=== PATIENT | female | born 1955 | race Caucasian/White ===

== ENCOUNTER 2018-04-15 14:17 | Emergency (ER) | payer OTHER ==
[~2018-04-15] VITALS: Ht 170.2 cm; Wt 105.7 kg
[2018-04-15 15:06] LABS: BASOPHILS ABSOLUTE AUTO 0.04 K/mm3 (0.00-0.23); BASOPHILS PERCENT AUTO 1 % (0-2); EOSINOPHILS PERCENT AUTO 0 % (0-6); Hematocrit 46.8 % (33.0-51.0); Hemoglobin 16.3 g/dL (11.5-16.0); IMMATURE GRAN ABSOLUTE AUTO 0.03 K/mm3 (0.00-0.10); IMMATURE GRAN PERCENT AUTO 0 % (0-1); LYMPHOCYTES ABSOLUTE AUTO 1.71 K/mm3 (0.84-5.20); LYMPHOCYTES PERCENT AUTO 20 % (21-46); MONOCYTES ABSOLUTE AUTO 0.37 K/mm3 (0.16-1.47); MONOCYTES PERCENT AUTO 4 % (4-13); Mean Corpuscular HGB 31.3 pg (26.0-34.0); Mean Corpuscular HGB Conc 34.8 g/dL (31.5-36.5); Mean Corpuscular Volume 90 fL (80-100); Mean Platelet Volume 9.6 fL (9.1-12.4); NEUTROPHILS ABSOLUTE AUTO 6.44 K/mm3 (1.96-9.15); NEUTROPHILS PERCENT AUTO 75 % (41-73); Platelet Count 303 K/mm3 (150-400); RDW Standard Deviation 42.6 fL (35.1-46.3); White Blood Cell Count 8.59 K/mm3 (4.00-11.30)
[2018-04-15 15:19] LABS: Alanine Aminotransfer (ALT/SGP 41 U/L (12-78); Albumin, Blood 4.2 g/dL (3.4-5.0); Albumin/Globulin Ratio 1.1 (0.8-1.8); Alk Phos 115 U/L (50-136); Anion Gap 10 mmol/L (6-16); Aspartate Aminotrans (AST/SGOT 34 U/L (12-37); Bilirubin, Total 0.8 mg/dL (0.1-1.0); Blood Urea Nitrogen 9 mg/dL (8-24); CO2, Blood 28 mmol/L (21-32); Calcium, Blood 8.8 mg/dL (8.5-10.1); Chloride, Blood 101 mmol/L (98-108); Creatinine, Blood 1.13 mg/dL (0.40-1.00); Ethanol (Alcohol), Blood, Med <3 mg/dL; Globulin, Blood 3.9 g/dL (2.2-4.0); Glomerular Filtration Rate 52 (60-); Glucose, Blood 114 mg/dL (70-99); Potassium, Blood 3.4 mmol/L (3.5-5.5); Salicylate <1.7 mg/dL (2.8-20.0); Sodium, Blood 139 mmol/L (136-145); Thyroxine (T4) 1.5 ug/dL (4.8-13.9); Total Protein, Blood 8.1 g/dL (6.4-8.2)
[2018-04-15 15:50] LABS: Acetaminophen, Random <2.0 ug/mL (10.0-30.0)
[2018-04-15 15:58] LABS: Source, Urine Clean Catch
[2018-04-15 16:03] LABS: Appearance, Urine Clear (Clear); Bilirubin, Urine Neg (Neg); Blood, Urine 1+ (Neg); Color, Urine Yellow (P-Yellow); Glucose Qualitative, Urine Neg (Neg); Ketones, Urine 1+ (Neg); Leukocyte Esterase, Urine Neg (Neg); Nitrite, Urine Neg (Neg); Protein, Urine Neg (Neg); Urobilinogen, Urine NORM (Normal); pH, Urine 6.5 (5.0-8.0)
[2018-04-15 16:13] LABS: Red Blood Cells, Urine 0-2 /hpf (0-2); Squamous Epithelial Cells Mod /hpf (Few); White Blood Cells, Urine 0-2 /hpf (0-5)
[2018-04-15 16:14] LABS: Bacteria Few /hpf
[2018-04-15 16:23] LABS: U Amphetamine Screen Not Detected; U Barbituate Screen Not Detected; U Benzodiazapine Screen Not Detected; U Buprenorphine Screen Not Detected; U Cannabinoids Screen Not Detected; U Cocaine Screen Not Detected; U Methadone Screen Not Detected; U Methamphetamine Screen Not Detected; U Opiates Screen Not Detected; U Oxycodone Screen Not Detected; U Phencyclidine Screen Not Detected; U Propoxyphene Screen Not Detected
[2018-04-15] MEDS ORDERED: Celexa10 MG PO (18:28)
[2018-04-15] MEDS ORDERED: Synthroid100 MCG PO (18:28)
== END 2018-04-15 18:55 | disposition home or self-care (01) ==
LOC: ER 14:17
PROVIDERS: Emergency Medicine
DX: F32.9 Major depressive disorder, single episode, unspecified (principal); R45.851 Suicidal ideations; R19.7 Diarrhea, unspecified; R11.2 Nausea with vomiting, unspecified; E03.9 Hypothyroidism, unspecified; F41.9 Anxiety disorder, unspecified; Z91.013 Allergy to seafood; Z91.011 Allergy to milk products; Z88.2 Allergy status to sulfonamides; Z91.018 Allergy to other foods; Z79.899 Other long term (current) drug therapy
CPT/HCPCS: 36415; 80053; 81001; 81025; 84436; 84443; 85025; 99284-25; G0480; Q3014

== ENCOUNTER 2019-02-10 08:10 | Day surgery (SDC) | payer OTHER ==
[~2019-02-10] VITALS: Ht 170.2 cm; Wt 92.7 kg
[~2019-02-10 08:10] MED LIST: Celexa10 MG PO; Synthroid100 MCG PO
--- NOTE | 2019-02-10 09:11 | NUR ---
History, Chart, Medications and Allergies reviewed before start of procedure. Lungs clear T/O to Auscultation. Patient confirms NPO status and agrees with scheduled surgery. Pre-Op teaching done. Pt verbalizes understanding. Patient reports completing Chlorhexadine shower X2 prior to admission to hospital.
--- NOTE | 2019-02-10 13:41 | NUR ---
INTO STEP VIA [facility]. PT REPORTS 4/10 ABDOMINAL PAIN. NO NAUSEA. STERI STRIPS TO INCISIONS X 4 C/D/I. PT OFFERED PO FLUIDS, HOWEVER, RN INSISTED THAT PT WOULD HAVE TO SIT UP IN ORDER TO DRINK-PT REQUESTS SPONGE INSTEAD TO WET MOUTH.REQUEST GRANTED.
--- NOTE | 2019-02-10 14:10 | NUR ---
PT REPORTS NAUSEA AND DIZZINESS. MED WITH REGLAN 10 MG IVP X1 SEE EMAR. PT INCONTINENT OF URINE- RN OFFERED PT BEDPAN OR TO GET OOB TO [facility]-PT STATES "I'M ALREADY GOING!" PT TEARFUL AND CRYING REGARDING THE URINARY INCONTINENCE. RN OFFERED REASSURANCE-[facility] COMPLETED AND COMPLETE BED CHANGE DONE. PT APPEARED TO DRIFT OFF TO SLEEP ONCE LINEN CHANGED.
--- NOTE | 2019-02-10 14:52 | NUR ---
PT REPORTS THAT HER PAIN LEVEL IS NOW 2/10. WHEN ASKED IF THE NAUSEA AND DIZZINESS ARE IMPROVING, PT REMARKS "IT IS HARD TO SAY." PT APPEARS TO SLEEP INTERMITTENTLY WHEN NOT DISTURBED. PT REPORTS HISTORY OF SLEEP APNEA-SEVERAL APNEIC SPELLS NOTED WHEN PT FALLS ASLEEP-SATS IN THE 80'S AT TIMES. PT ENCOURAGED TO C&DB AND SATS RETURN TO >90%
--- NOTE | 2019-02-10 15:08 | NUR ---
DR. MERINO UPDATED THAT PT HAS CONTINUED NAUSEA AND DIZZINESS AND THAT SHE IS REFUSING TO EAT, DRINK, AND/OR MOVE AT THIS TIME. ORDER GIVEN TO ADMIT PT TO SURGICAL OBSERVATION STATUS FOR OVER NIGHT.
--- NOTE | 2019-02-10 15:28 | NUR ---
REPORT GIVEN TO SANTIAGO ARANGO IN PREP TO TRANSFER PT TO ROOM 227.
--- NOTE | 2019-02-10 17:31 | NUR ---
PATIENT HAS BEEN SLEEPING SINCE ARRIVAL TO FLOOR. VSS. LAP SITES CLEAR. O2 @ 1L PER NC TO KEEP SATS >90 %. HAS DENIED NAUSEA OR NEED FOR PAIN MED. CONT TO MONITOR.
--- NOTE | 2019-02-11 05:26 | NUR ---
SHIFT SUMMARY LYING IN SEMI FOWLERS WHILE RESTING WITH EYES CLOSED. DENIES PAIN OR DISCOMFORT AT THIS TIME. C/O DIZZYNESS AND FEELING SHAKY THROUGH OUT SHIFT, HAS REFUSED OFF OF N/V AND/OR PAIN MEDS. TOLERATING FLUIDS, APPLESAUCE, AND CRACKERS WELL. NEURO AND NEUROVASCULAR INTACT. HAS BEEN AMBULATING TO BATHROOM WITH STANDBY ASSIST. NO FURTHER CHANGES SINCE START OF SHIFT. SAFETY MEASURES IN PLACE. WILL CONTINUE TO MONITOR.
--- NOTE | 2019-02-11 09:54 | NUR ---
DISCHARGED DC'D IV, CATHETER INTACT. REVIEWED DC PAPERWORK; PT VERBALIZED UNDERSTANDING. PT LEFT UNIT IN WC W/POSSESSIONS AND DC PAPERWORK IN HAND ACCOMPANIED BY SPOUSE.
== END 2019-02-11 09:45 | disposition home or self-care (01) ==
LOC: ORSCMMR 08:10 → ORD 09:30 → ORSCMMR 09:30 → SURS 15:30 → ORSCMMR 02-11 09:45
PROVIDERS: Surgery
PROC: BF031ZZ Plain Radiography of Gallbladder and Bile Ducts using Low Osmolar Contrast (ICD-10-PCS; principal; 2019-02-10 09:30)
PROC: 0FT44ZZ Resection of Gallbladder, Percutaneous Endoscopic Approach (ICD-10-PCS; principal; 2019-02-10 09:30)
DX: K80.20 Calculus of gallbladder without cholecystitis without obstruction (principal); E03.9 Hypothyroidism, unspecified; Z79.899 Other long term (current) drug therapy
CPT/HCPCS: 74300; 88304; A9270-GY; C1729; J0690; J1100; J1885; J2250; J2270; J2405; J2704; J2765; J3010; J7030; J7120

== ENCOUNTER 2019-10-13 11:09 | Day surgery (SDC) | payer OTHER ==
[~2019-10-13] VITALS: Ht 167.6 cm; Wt 79.2 kg
--- NOTE | 2019-10-13 13:47 | NUR ---
10/13/19 1347 Ellen Hatfield LATE ENTRY WHILE IN STEP DOWN VSS. PT STATED SHE FELT "COLD AND DIZZY." RN REASSURED PT THAT HER VITALS WERE WNL. WARM BLANKETS PROVIDED. AT CHAIRSIDE. RN ENCOURAGED PT TO SIT UP AND PROVIDED BEVERAGE. PT STATED "I AM JUST TOO SLEEPY STILL." RN WENT OVER DISCHARGE INSTRUCTIONS UNTIL ALL QUESTIONS WERE ANSWERED. RN ENCOURAGED PT TO SIT AT THE EDGE OF THE BED, HOWEVER PT STATED "I FEEL TOO TIRED." RN GAVE REPORT TO [facility].ALEJANDRA AND LET PT REST LONGER. PT TAKEN OUT VIA WHEELCHAIR BY [facility].MAHESH AT 1320.
== END 2019-10-13 13:20 | disposition home or self-care (01) ==
LOC: ORSCSDS 11:09
PROVIDERS: Student in an Organized Health Care Education/Training Program
PROC: 0DB58ZX Excision of Esophagus, Via Natural or Artificial Opening Endoscopic, Diagnostic (ICD-10-PCS; principal; 2019-10-13 14:00)
PROC: 0DB98ZX Excision of Duodenum, Via Natural or Artificial Opening Endoscopic, Diagnostic (ICD-10-PCS; principal; 2019-10-13 14:00)
PROC: 0DB48ZX Excision of Esophagogastric Junction, Via Natural or Artificial Opening Endoscopic, Diagnostic (ICD-10-PCS; principal; 2019-10-13 14:00)
PROC: 0DB68ZX Excision of Stomach, Via Natural or Artificial Opening Endoscopic, Diagnostic (ICD-10-PCS; principal; 2019-10-13 14:00)
DX: R10.9 Unspecified abdominal pain (principal); K31.7 Polyp of stomach and duodenum; K29.70 Gastritis, unspecified, without bleeding; R11.2 Nausea with vomiting, unspecified; E03.9 Hypothyroidism, unspecified; F41.9 Anxiety disorder, unspecified; Z79.899 Other long term (current) drug therapy
CPT/HCPCS: 88305; 88342; J2704; J7120

== ENCOUNTER 2021-03-21 12:02 | Day surgery (SDC) | payer OTHER ==
[~2021-03-21] VITALS: Ht 170.2 cm; Wt 74.4 kg
[2021-03-21] MEDS ORDERED: OMEP20ER (12:10)
--- NOTE | 2021-03-21 12:14 | NUR ---
03/21/21 [address] PL[address] IN RIGHT EYE AT 1210 PLEDGET PLACED IN RIGHT EYE AT 1212 BY [facility].CB
== END 2021-03-21 13:52 | disposition home or self-care (01) ==
LOC: ORSCSDS 12:02
PROVIDERS: Ophthalmology
PROC: 08RJ3JZ Replacement of Right Lens with Synthetic Substitute, Percutaneous Approach (ICD-10-PCS; principal; 2021-03-21 13:15)
DX: H25.11 Age-related nuclear cataract, right eye (principal); I10 Essential (primary) hypertension; K21.9 Gastro-esophageal reflux disease without esophagitis; Z79.899 Other long term (current) drug therapy
CPT/HCPCS: J2001; J2250; J3010; J3301; J7040; V2632

== ENCOUNTER → 2021-04-09 | Outpatient (CLI) | payer OTHER ==
[~2021-04-09] MED LIST changes: +OMEP20ER
== END | disposition home or self-care (01) ==
LOC: LAB 16:15 → LAB SHORT 16:15
DX: R30.9 Painful micturition, unspecified (principal)
CPT/HCPCS: 87077; 87086; 87186

== ENCOUNTER 2021-06-06 06:51 | Day surgery (SDC) | payer MEDICARE, OTHER ==
[~2021-06-06] VITALS: Ht 167.6 cm; Wt 74.1 kg
--- NOTE | 2021-06-06 07:02 | NUR ---
06/06/21 0702 Marcelino Brush CALL LIGHT WITHIN REACH
--- NOTE | 2021-06-06 08:30 | NUR ---
06/06/21 2030 MUSHTAQ BURRIS COMING FROM [facility]. PT RESTING COMFORTABLY. DENIES PAIN OR ISSUES.
== END 2021-06-06 08:20 | disposition home or self-care (01) ==
LOC: ORSCSDS 06:51
PROVIDERS: Ophthalmology
PROC: 08RK3JZ Replacement of Left Lens with Synthetic Substitute, Percutaneous Approach (ICD-10-PCS; principal; 2021-06-06 08:00)
DX: H25.12 Age-related nuclear cataract, left eye (principal); E03.9 Hypothyroidism, unspecified; Z79.899 Other long term (current) drug therapy
CPT/HCPCS: J2001; J2250; J3010; J3301; J7040; V2632

== ENCOUNTER 2021-06-25 10:40 | Day surgery (SDC) | payer MEDICARE, OTHER ==
[~2021-06-25] VITALS: Ht 170.2 cm; Wt 73.1 kg
[~2021-06-25 10:40] MED LIST changes: +EUTHYROX88 MCG; +OMEP20ER PO
--- NOTE | 2021-06-25 12:45 | NUR ---
06/25/21 1245 LEEANN OGLESBY 5ML NS INJECTED FOR POLYPECTOMY
== END 2021-06-25 14:04 | disposition home or self-care (01) ==
LOC: ORSCSDS 10:40
PROVIDERS: Student in an Organized Health Care Education/Training Program
PROC: 0DBK8ZX Excision of Ascending Colon, Via Natural or Artificial Opening Endoscopic, Diagnostic (ICD-10-PCS; principal; 2021-06-25 12:00)
PROC: 0DB68ZX Excision of Stomach, Via Natural or Artificial Opening Endoscopic, Diagnostic (ICD-10-PCS; principal; 2021-06-25 12:00)
PROC: 0DBN8ZX Excision of Sigmoid Colon, Via Natural or Artificial Opening Endoscopic, Diagnostic (ICD-10-PCS; principal; 2021-06-25 12:00)
PROC: 0DBP8ZX Excision of Rectum, Via Natural or Artificial Opening Endoscopic, Diagnostic (ICD-10-PCS; principal; 2021-06-25 12:00)
PROC: 0DB98ZX Excision of Duodenum, Via Natural or Artificial Opening Endoscopic, Diagnostic (ICD-10-PCS; principal; 2021-06-25 12:00)
PROC: 0DBL8ZX Excision of Transverse Colon, Via Natural or Artificial Opening Endoscopic, Diagnostic (ICD-10-PCS; principal; 2021-06-25 12:00)
DX: R19.5 Other fecal abnormalities (principal); R10.13 Epigastric pain; K29.70 Gastritis, unspecified, without bleeding; D12.2 Benign neoplasm of ascending colon; D12.3 Benign neoplasm of transverse colon; D12.5 Benign neoplasm of sigmoid colon; D12.8 Benign neoplasm of rectum; E03.9 Hypothyroidism, unspecified; Z79.899 Other long term (current) drug therapy
CPT/HCPCS: 88305; 88342; J2704; J7120

== ENCOUNTER 2023-05-01 09:52 | Day surgery (SDC) | payer MEDICARE, OTHER | END 2023-05-11 22:58 | disposition home or self-care (01) | LOC: MOI US 09:52 | DX: D24.1 Benign neoplasm of right breast (principal) | CPT/HCPCS: 19285; 77065; A4648 ==

== ENCOUNTER 2023-05-27 06:33 | Day surgery (SDC) | payer MEDICARE, OTHER ==
[~2023-05-27] VITALS: Ht 166 cm; Wt 80.3 kg
[2023-05-27] VITALS (14 sets, daily range): BP systolic 135–172; BP diastolic 65–84
[~2023-05-27 06:33] MED LIST changes: +ALMACONE SUSPE355 ML PO; +ALPR.5 PO; -EUTHYROX88 MCG; +EUTHYROX88 MCG PO
--- NOTE | 2023-05-27 07:22 | NUR ---
Ambulatory in Day Surgery. History, Chart, Medications and Allergies reviewed before start of procedure. Patient confirms NPO status and agrees with scheduled surgery. Surgical site prepped with 2% Chlorhexidine cloth wipe. Pre-Op teaching done. Pt verbalizes understanding. Patient reports completing Chlorhexadine shower X2 prior to admission to hospital. Patient States Post-Procedure ride home has been arranged.
--- NOTE | 2023-05-27 10:44 | NUR ---
Patient up to Ambulate independently. Gait steady. Discharge instructions reviewed with patient. Patient verbalizes understanding. Copy given to patient to take home, WELL . Patient States Post-Procedure ride home has been arranged. Discharged via wheelchair to private car for ride home. PT REPORTS READY TO GO HOME. PT TOLERATING PO. DENIES NAUSEA AND PAIN. SURGICAL SITE WNL. BREAST BINDER ON.
== END 2023-05-27 10:44 | disposition home or self-care (01) ==
LOC: ORSCMMR 06:33
PROVIDERS: Surgery
PROC: 0HBT0ZZ Excision of Right Breast, Open Approach (ICD-10-PCS; principal; 2023-05-27 07:30)
DX: D24.1 Benign neoplasm of right breast (principal); K21.9 Gastro-esophageal reflux disease without esophagitis; E03.9 Hypothyroidism, unspecified; F41.8 Other specified anxiety disorders; Z79.899 Other long term (current) drug therapy
CPT/HCPCS: 76098; 88307; A9270; J0690; J1100; J1885; J2250; J2405; J2704; J2765; J3010; J7120